=== PATIENT | female | born 1940 | race Caucasian/White ===

== ENCOUNTER 2024-04-30 10:58 | Emergency (ER) | payer OTHER, MEDICARE ==
[2024-04-30 11:08] VITALS: BP 136/81; PULSE 79; RESP 18; TEMP 98.9; BMI 24.0
[2024-04-30] MEDS ORDERED: IBUPROFEN 400 MG TABLET (FP) PO ONE (11:30)
[2024-04-30] MEDS: IBUPROFEN 400 MG TABLET (FP) PO ONE (11:32)
== END 2024-04-30 12:10 | disposition home or self-care (01) ==
LOC: FER 10:58
DX: M17.11 Unilateral primary osteoarthritis, right knee (principal); M25.561 Pain in right knee
CPT/HCPCS: 73562-TC-RT-FY; 99283-25